=== PATIENT | female | born 1985 | race African-American/Black ===

== ENCOUNTER 2024-01-05 01:51 | Emergency (ER) | payer SELFPAY ==
[~2024-01-05] VITALS: Ht 167.6 cm; Wt 87.0 kg
[2024-01-05 01:53] VITALS: O2SAT 98
[2024-01-05 02:40] LABS: ALANINE AMINOTRANSFERASE 14 IU/L (10-49); ALBUMIN 3.8 g/dL (3.2-4.8); ASPARTATE AMINOTRANSFERASE 29 IU/L (<34); BILIRUBIN TOTAL 0.7 mg/dL (0.1-1.0); CALCIUM 8.4 mg/dL (8.7-10.4); CARBON DIOXIDE 22 mEq/L (21-32); CHLORIDE 107 mEq/L (98-107); CREATININE 0.7 mg/dL (0.6-1.0); ETHANOL BLOOD < 10 mg/dL (<10); GLUCOSE 81 mg/dL (70-105); POTASSIUM 3.9 mEq/L (3.5-5.1); PROTEIN TOTAL 6.5 g/dL (6.0-8.3); SODIUM 138 mEq/L (136-145); UREA NITROGEN BLOOD 6 mg/dL (9-23)
[2024-01-05 02:46] LABS: B-HCG QUANTITATIVE < 1 mIU/mL (<3)
[2024-01-05 03:41] LABS: HCG SCREEN NEGATIVE
[2024-01-05 05:45] LABS: BASOPHILS % 0.5 % (0.0-2.0); EOSINOPHILS % 0.8 % (0.0-5.0); HEMATOCRIT. 37.2 % (36.0-48.0); LYMPHOCYTES % 22.8 % (20.0-50.0); MEAN CORPUSCULAR HEMOGLOBIN 28.7 pg (28.0-32.0); MEAN CORPUSCULAR HGB CONC 32.3 g/dL (31.0-37.0); MEAN CORPUSCULAR VOLUME 88.7 fL (81.0-99.0); MEAN PLATELET VOLUME 9.6 fl (7.4-10.4); MONOCYTES % 9.8 % (2.0-8.0); NEUTROPHILS % 66.1 % (40.0-76.0); PLATELET 202 x1000/uL (130-400); RED CELL DISTRIBUTION WIDTH 14.5 % (11.6-14.6); WHITE BLOOD COUNT 8.2 x1000/uL (4.5-11.0)
[2024-01-05 06:01] VITALS: BP 159/83; PULSE 51; RESP 18
[2024-01-05] MEDS ORDERED: TOPUD PO (07:08)
[2024-01-05 07:18] LABS: PROTHROMBIN TIME 10.8 sec (9.6-11.0)
[2024-01-05 07:46] VITALS: TEMP 97.5
[2024-01-05] MEDS: ACETAMINOPHEN 325MG TABLET PO ONE (07:46)
== END 2024-01-05 07:45 | disposition home or self-care (01) ==
LOC: ER 01:51
DX: N93.8 Other specified abnormal uterine and vaginal bleeding (principal)
CPT/HCPCS: 80053; 80320; 84703; 84702; 83690; 85025; 85610; 86850; 86900; 86901; 36415; 76830; 76856; 99284; Z7610; G0480